=== PATIENT | female | born 2000 | race Caucasian/White ===

== ENCOUNTER 2019-10-15 01:33 | Day surgery (SDC) | payer BC, SELFPAY ==
[2019-10-06 14:17] VITALS: BMI 16.5
--- NOTE | 2019-10-15 07:58 | WPDANESEPPF ---
Anes - Initial Pre Proc Eval Procedure: Operation Date: 10/15/19 09:00 Proposed Procedures p Esophagogastroduodenoscopy - Blake Queen MD Date/Time: 10/15/19 07:58 Surgeon: Blake Queen MD Pre Op Diagnosis: weight loss, abdominal pain Patient Data Age: 19 Gender: F Height: 5 ft 5 in Weight: 45 kg Allergies Allergy/AdvReac Type Severity Reaction Status Date / Time latex Allergy Severe Hives Verified 10/15/19 07:51 adhesive Allergy Intermediate Rash Verified 10/15/19 07:51 Home Medications Medication Instructions Recorded Confirmed Type norgestimate-ethinyl estradiol 1 tablet PO DAILY 08/11/19 08/11/19 History [Estarylla] omeprazole 20 mg PO DAILY 10/06/19 10/06/19 History Patient hx anesthesia problems: post op nausea/vomiting Family hx anesthesia problems: post op nausea/vomiting PMFSH Past Medical History Medical History Dyspepsia Kidney stone Nausea RUQ pain Weight loss Surgical History Surgical History History of orthopedic surgery Social History Social History Smoking status: Never smoker Gender identity (if verbalized by the patient): Female Anes - Eval Final PreProcedure Day of Procedure 10/15/19 07:58 Patient weight: normal Heart: regular rate and rhythm Lungs: clear to auscultation Airway: Mallampati scale class 1 Neurological: alert and oriented Last oral intake: >/= 8 hours ASA classification: II Emergent: no Anesthetic plan: proceed Anesthesia type and monitoring: general GIVS and standard monitoring Informed Consent: The patient's anesthetic plan and its attendant risks and benefits were discussed with the patient/family/POA. Questions were solicited and answers provided to the satisfaction of the patient/family/POA.
[2019-10-15 08:04] VITALS: BP 127/73; PULSE 84; RESP 16; TEMP 37.1; O2SAT 100
[2019-10-15] MEDS: LACTATED RINGERS 1,000 ML 150 ML IV CONT (08:15)
--- NOTE | 2019-10-15 08:42 | WPDHPUPDATE1 ---
History and Physical Update Update Date/Time: 10/15/19 08:42 History and Physical has been reviewed, including an updated exam of the patient. There are NO changes in the patient's condition. Risks, benefits, and alternatives have been discussed and questions answered. Patient agrees to proceed with procedure.
[2019-10-15 08:55] VITALS: BP 106/63; PULSE 74; RESP 20; O2SAT 100
[2019-10-15 09:05] VITALS: BP 114/77; PULSE 76; RESP 17; O2SAT 100
[2019-10-15 09:15] VITALS: BP 111/77; PULSE 72; RESP 20; O2SAT 99
--- NOTE | 2019-10-15 15:00 | PM.HPGS ---
History of Present Illness History of Present Illness Consent: Risks, benefits, and alternatives have been discussed and questions answered. Patient agrees to proceed with procedure. Chief complaint: weight loss, abdominal pain Narrative: Lita Singh is a 19 year old female with abdominal pain Review of Systems Constitutional: Constitutional: Denies headache(s) and Denies weakness Eyes: Eyes: Denies blurry vision ENT: Reports Normal hearing present, Denies headache(s) and Denies neck pain Cardiovascular: Cardiovascular: Denies chest pain and Denies dyspnea Respiratory: Respiratory: Denies dyspnea Gastrointestinal: Gastrointestinal: Reports no additional gastrointestinal complaints Genitourinary: Genitourinary: Denies dysuria Musculoskeletal: Musculoskeletal: Denies neck pain Integumentary/Breasts: Skin/Breast: Denies dry skin Neurologic: Reports Normal hearing present, Denies headache(s) and Denies weakness Psychiatric: Psychiatric: Denies anxiety Endocrine: Endocrine: Denies change in body appearance Hematologic/Lymphatic: Hematologic/Lymphatic: Denies easy bleeding Allergic/Immunologic: Allergic/Immunologic: Denies urticaria PMFSH Past Medical History Medical History Dyspepsia Kidney stone Nausea RUQ pain Weight loss Surgical History Surgical History History of orthopedic surgery Social History Social History Smoking status: Never smoker Gender identity (if verbalized by the patient): Female Meds Home Medications and Allergies Home Medications Medication Instructions Recorded Confirmed Type norgestimate-ethinyl estradiol 1 tablet PO DAILY 08/11/19 10/25/19 History [Estarylla] Allergies Allergy/AdvReac Type Severity Reaction Status Date / Time latex Allergy Severe Hives Verified 10/25/19 19:22 adhesive Allergy Intermediate Rash Verified 10/25/19 19:22 Exam Const: General: comfortable and no acute distress HENMT: General nose exam: Normal nares present Eyes: General: appearance normal, both eyes and all related structures Neck: Neck: no JVD Resp: Auscultation: clear to auscultation bilaterally Cardio: Rate: regular rate Rhythm: regular rhythm GI: Inspection: non-distended GI Palp: Yes Soft to palpation Skin: General skin exam: normal color Neuro: General: gait normal Speech: normal speech Extrem: General: normal to inspection Psych: Mental Status: mental status grossly normal Assessment and Plan Assessment and plan (1) Nausea: Code(s): R11.0 - Nausea Status: Acute Assessment and Plan: will proceed with egd (2) RUQ pain: Code(s): R10.11 - Right upper quadrant pain Status: Acute
== END 2019-10-15 09:28 | disposition home or self-care (01) ==
PROVIDERS: PCP Physician Assistant; Visit Provider Internal Medicine Gastroenterology
PROC: 0DJ08ZZ Inspection of Upper Intestinal Tract, Via Natural or Artificial Opening Endoscopic (ICD-10-PCS; CPT 43235; principal; 2019-10-15 09:00)
DX: K31.84 Gastroparesis (principal); K29.50 Unspecified chronic gastritis without bleeding
CPT/HCPCS: 43239; 88305; J2704; J7120

== ENCOUNTER 2019-10-25 18:53 | Emergency (ER) | payer BC, SELFPAY ==
[2019-10-25 19:00] VITALS: BP 113/68; PULSE 86; RESP 18; TEMP 37.1; O2SAT 100
--- NOTE | 2019-10-25 19:13 | ED.URI ---
HPI - URI/Sore Throat General Chief Complaint: Upper Respiratory Infection Stated Complaint: flu test Time Seen by Provider: 10/25/19 19:13 Source: patient and RN notes reviewed History of Present Illness HPI Narrative: Patient is a 19-year-old female presents the urgent care with complaints of sinus congestion, postnasal drainage, intermittent sore throat. Patient states that she has had the symptoms since Sunday but developed a low-grade fever 2 days ago. Patient has been using Tylenol as needed [id number]. No other acute complaints. No acute distress noted. Patient had a plan of care. Related Data Home Medications Medication Instructions Recorded Confirmed norgestimate-ethinyl estradiol 1 tablet PO DAILY 08/11/19 08/11/19 [Estarylla] Allergies Allergy/AdvReac Type Severity Reaction Status Date / Time latex Allergy Severe Hives Verified 10/25/19 19:22 adhesive Allergy Intermediate Rash Verified 10/25/19 19:22 Review of Systems Review of Systems: Narrative: CONSTITUTIONAL: Reports a fever EYES: Denies visual changes, redness, or discharge. ENT: Reports of sinus congestion and postnasal drainage and intermittent sore throat CARDIOVASCULAR: Denies chest pain, palpitations, or edema. RESPIRATORY: Denies cough or dyspnea. GASTROINTESTINAL: Denies abdominal pain, nausea, vomiting, or diarrhea. GENITOURINARY: Denies dysuria or hematuria. SKIN: Denies rash or itching. MUSCULOSKELETAL: Denies back pain, joint pain, or myalgia. NEUROLOGIC: Denies headache, numbness, or weakness. All other systems reviewed are negative, except as documented in HPI. PMFSH Social History Social History Smoking status: Never smoker Gender identity (if verbalized by the patient): Female Comments At the time of my signature, I reviewed and agree with the nursing past medical, surgical, social, and family history. There is no relevant family history pertinent to the patient complaint. Exam Narrative: Exam Narrative: GENERAL: This is a well-nourished, well-developed patient, in no apparent distress. HEAD: normocephalic, atraumatic. EYES: PERRL. Sclera clear/white. Vision is grossly intact. EARS: External ears normal, auditory canals clear and without drainage, TMs normal without perforation. Hearing grossly intact. NOSE: External nose normal with no obvious nasal discharge, mild bilateral erythemic nares with clear rhinorrhea. THROAT: Mucous membranes moist, mild erythema noted posterior oropharynx with moderate postnasal drainage. NECK: Neck supple, non-tender without lymphadenopathy, masses or thyromegaly. CARDIOVASCULAR: Regular rate and rhythm without murmurs, gallops, or rubs. RESPIRATORY: Clear to auscultation. Breath sounds equal bilaterally. No wheezes, rales, or rhonchi. SKIN: warm, intact with no suspicious lesions or rash, good texture and turgor. NEURO: awake, alert, and oriented to person, place and time. There were no obvious focal neurologic abnormalities. EXTREMITIES: No clubbing, cyanosis, or edema. Course Vital Signs Vital signs: Vital Signs Temperature 98.7 F 10/25/19 19:00 Pulse Rate 86 10/25/19 19:00 Respiratory Rate 18 10/25/19 19:00 Blood Pressure 113/68 10/25/19 19:00 Pulse Oximetry 100 10/25/19 19:00 Temperature 98.7 F 10/25/19 19:00 Pulse Rate 86 10/25/19 19:00 Respiratory Rate 18 10/25/19 19:00 Blood Pressure 113/68 10/25/19 19:00 Pulse Oximetry 100 10/25/19 19:00 Reviewed MDM - URI/Sore Throat MDM Narrative Medical decision making narrative: Reviewed lab results with the patient. She is aware that flu swab was negative. Advised the patient to use [id number]-lfzznbe medication for symptom relief such as Claritin and Flonase. Use Tylenol/ibuprofen as needed for fever pain. Increase fluids and rest. Use humidifier at night. Follow-up with PCP within 2 to 5 days or for worsening symptoms or failure to impro
== END 2019-10-25 19:35 | disposition home or self-care (01) ==
PROVIDERS: Emergency Provider Nurse Practitioner Family; PCP Physician Assistant
DX: J06.9 Acute upper respiratory infection, unspecified (principal)
CPT/HCPCS: 87804; 99212; G0463

== ENCOUNTER 2019-12-06 10:21 | Emergency (ER) | payer BC, SELFPAY ==
--- NOTE | 2019-12-06 10:26 | ED.GENADULT ---
HPI - General Adult General Chief complaint: Urogenital-Female Stated complaint: UTI Time Seen by Provider: 12/06/19 10:41 Source: patient Mode of arrival: ambulatory Limitations: no limitations History of Present Illness HPI narrative: 19-year-old female patient presents to the [facility] with complaints of urinary symptoms that started this morning. Patient states she has had urgency, frequency and burning with urination. Patient denies any , breast-feeding or being sexually active at this time. Patient denies taking thing for her symptoms so far. Related Data Home Medications Medication Instructions Recorded Confirmed norethindrone-e.estradiol-iron 1 tablet PO DAILY 12/06/19 12/06/19 [10/06 (28)] Allergies Allergy/AdvReac Type Severity Reaction Status Date / Time latex Allergy Severe Hives Verified 10/25/19 19:22 adhesive Allergy Intermediate Rash Verified 10/25/19 19:22 Review of Systems Review of Systems: Narrative: CONSTITUTIONAL: Denies fever, chills, or sweats. EYES: Denies visual changes, redness, or discharge. ENT: Denies rhinorrhea, congestion, sore throat, or otalgia. CARDIOVASCULAR: Denies chest pain, palpitations, or edema. RESPIRATORY: Denies cough or dyspnea. GASTROINTESTINAL: Denies abdominal pain, nausea, vomiting, or diarrhea. GENITOURINARY: Denies dysuria or hematuria. Positive pain with urination, urgency and frequency that started this a.m. SKIN: Denies rash or itching. MUSCULOSKELETAL: Denies back pain, joint pain, or myalgia. NEUROLOGIC: Denies headache, numbness, or weakness. PSYCHIATRIC: Denies anxiety or depression. [facility] Past Medical History Medical History Dyspepsia Kidney stone Nausea RUQ pain Weight loss Surgical History Surgical History History of orthopedic surgery Social History Social History Smoking status: Never smoker Gender identity (if verbalized by the patient): Female Comments At the time of my signature I agree with nursing past medical history, surgical, social, and family history. There is no relevant family history pertinent to the presenting complaint. Exam Narrative: Exam Narrative: GENERAL: Well-appearing, well-nourished, and in no acute distress. HEAD: Normocephalic, atraumatic. EYES: PERRLA and EOMI. ENT: Nares clear, no rhinorrhea or epistaxis. Mucous membranes moist. NECK: Supple. No lymphadenopathy CHEST: Clear to auscultation. No respiratory distress. HEART: Regular rate and rhythm. No murmur heard. Normal peripheral pulses. ABDOMEN: Soft, nontender, nondistended, normal active bowel sounds. Slight CVA tenderness to the right side on percussion. EXTREMITIES: Normal range of motion. No edema. SKIN: Warm, dry, no rash. NEURO: No focal deficits. Alert and oriented x3. Course Vital Signs Vital signs: Vital Signs Temperature 36.4 C L 12/06/19 10:27 Pulse Rate 80 12/06/19 10:27 Respiratory Rate 16 12/06/19 10:27 Blood Pressure 124/87 12/06/19 10:27 Pulse Oximetry 100 12/06/19 10:27 Temperature 36.4 C L 12/06/19 10:27 Pulse Rate 80 12/06/19 10:27 Respiratory Rate 16 12/06/19 10:27 Blood Pressure 124/87 12/06/19 10:27 Pulse Oximetry 100 12/06/19 10:27 Vital signs reviewed. Medical Decision Making Differential Diagnosis Differential Diagnosis: Differential diagnosis: Uncomplicated lower UTI, uncomplicated UTI, pyelonephritis Notify patient that her urine dip does suggest that she most likely does have a urinary tract infection therefore we will discharge her home with antibiotics for the UTI and she can take Tylenol, ibuprofen and increase her water intake to help with her symptoms. Patient notified that if the urine culture comes back requiring a different type of antibiotic we will call her own place her on a different ant
[2019-12-06 10:27] VITALS: BP 124/87; PULSE 80; RESP 16; TEMP 36.4; O2SAT 100
== END 2019-12-06 10:50 | disposition home or self-care (01) ==
PROVIDERS: Emergency Provider Nurse Practitioner Family; PCP Physician Assistant
DX: N30.01 Acute cystitis with hematuria (principal)
CPT/HCPCS: 81003; 87077; 87086; 87088; 87186; 99213; G0463

== ENCOUNTER 2020-01-28 08:28 | Outpatient (CLI) | payer BC, SELFPAY ==
--- NOTE | ~2020-01-28 | NM_ITS ---
EXAM: NM gastric emptying study DATE: 01/28/2020 13:23 INDICATION: Nausea. TECHNIQUE: A gastric emptying study was performed using the methodology of [place] WILLIS, et al. J Nucl Med 2007; 48:568-572. The patient was given a meal consisting of 2 scrambled eggs labeled with 0.891 mCi Tc-99m sulfur colloid, 2 slices of toast, two packages of jam, and approximately 120 mL of water . Simultaneous anterior and posterior 1-min images of the abdomen were obtained with the patient supi ne at multiple time points over a total period of 4 hours. The geometric mean of anterior and posteri or views was determined, and the percentage retention was calculated for each time point. COMPARISON: None. FINDINGS: Gastric retention of the radiotracer-labeled meal was 47%, 19%, and 12% at the 1-hour, 2-h our, and 4-hour time points, respectively. With this technique, apparent rapid gastric emptying is quinn ggested by <30% gastric retention at 1 hour. Delayed gastric emptying is defined by gastric retention of >90% at 1 hour, >60% retention at 2 hours, or >10% retention at 4 hours. IMPRESSION: 1. Delayed gastric emptying. Reviewed, dictated and finalized at location A.
== END 2020-01-28 08:29 | disposition home or self-care (01) ==
PROVIDERS: PCP Physician Assistant; Visit Provider Internal Medicine Gastroenterology
DX: R11.0 Nausea (principal); R14.0 Abdominal distension (gaseous); K30 Functional dyspepsia
CPT/HCPCS: 78264; A9541

== ENCOUNTER 2020-04-02 10:05 | Emergency (ER) | payer BC, SELFPAY ==
[2020-04-02 10:10] VITALS: BP 112/70; PULSE 100; RESP 16; TEMP 37.4; O2SAT 100
--- NOTE | 2020-04-02 10:21 | ED.EYEPROB ---
HPI - Eye Problem General Chief complaint: Eye Problems Stated complaint: right eye swollen/red Time Seen by Provider: 04/02/20 10:21 Source: patient Mode of arrival: ambulatory Limitations: no limitations History of Present Illness HPI Narrative: Lita Singh is a 19 yo female with PMH of GERD and seasonal allergies who comes to express care with right eye swelling. She states that 2 days ago her eye was swollen shut in the morning and crusted, responded well to warm washcloth, has become progressively more teary and injected Related Data Home Medications Medication Instructions Recorded Confirmed norethindrone-e.estradiol-iron 1 tablet PO DAILY 12/06/19 04/02/20 [10/06 (28)] Allergies Allergy/AdvReac Type Severity Reaction Status Date / Time latex Allergy Severe Hives Verified 04/02/20 10:28 adhesive Allergy Intermediate Rash Verified 04/02/20 10:28 Review of Systems Review of Systems: Narrative: CONSTITUTIONAL: Denies fever, chills, sweats. EYES: Denies visual changes, redness, discharge. ENT: Denies rhinorrhea, congestion, sore throat, otalgia. Right eye swollen and injected CARDIOVASCULAR: Denies chest pain, palpitations, edema. RESPIRATORY: Denies dyspnea, wheezing, cough GASTROINTESTINAL: Denies abdominal pain, nausea, vomiting, diarrhea. GENITOURINARY: Denies dysuria, hematuria, abnormal discharge SKIN: Denies rash or itching. NEUROLOGIC: Denies numbness, or focal weakness. PSYCHIATRIC: Denies anxiety or depression. PMFSH Past Medical History Medical History Bloating Constipation Dyspepsia Gastroesophageal reflux disease Kidney stone Nausea RUQ pain Weight loss Surgical History Surgical History History of orthopedic surgery Family History Family History Other No active medical problems Social History Social History Smoking status: Never smoker Gender identity (if verbalized by the patient): Female Comments At time of signature, I agree with nursing past medical, surgical, social and family history. There is no relevant family history pertinent to the presenting complaint. Exam Narrative: Exam Narrative: GENERAL: This is a well-nourished, well-developed patient, in mild distress. HEAD: normocephalic, atraumatic. EYES Sclera clear/white on L, right eye swollen and injected, small amount of discharge intercanthus. Vision is grossly intact. EARS: External ears normal, . Hearing grossly intact. NOSE: External nose normal without nasal discharge, nares without redness, no rhinorrhea. THROAT: Mucous membranes moist, NECK: Neck supple, CARDIOVASCULAR: Regular rate and rhythm without murmurs, gallops, or rubs. RESPIRATORY: Clear to auscultation. Breath sounds equal bilaterally. No wheezes, rales, or rhonchi. GASTROINTESTINAL: Abdomen soft, SKIN: warm, intact with no suspicious lesions or rash, good texture and turgor. NEURO: awake, alert, and oriented to person, place and time. There were no obvious focal neurologic abnormalities. Steady gait EXTREMITIES: Normal range of motion. BACK: Nontender without deformity Course Course Emergency Course: Visual acuity test normal Started on Polytrim eyedrops-warm compresses to eye 3 times a day Vital Signs Vital signs: Vital Signs Temperature 99.3 F 04/02/20 10:10 Pulse Rate 100 04/02/20 10:10 Respiratory Rate 16 04/02/20 10:10 Blood Pressure 112/70 04/02/20 10:10 Pulse Oximetry 100 04/02/20 10:10 Temperature 99.3 F 04/02/20 10:10 Pulse Rate 100 04/02/20 10:10 Respiratory Rate 16 04/02/20 10:10 Blood Pressure 112/70 04/02/20 10:10 Pulse Oximetry 100 04/02/20 10:10 MDM - Eye Problem Differential Diagnosis Differential diagnosis: Likely corneal abrasion, conjunctiv
== END 2020-04-02 10:42 | disposition home or self-care (01) ==
PROVIDERS: Emergency Provider Nurse Practitioner; PCP Physician Assistant
DX: H10.31 Unspecified acute conjunctivitis, right eye (principal); K21.9 Gastro-esophageal reflux disease without esophagitis
CPT/HCPCS: 99213; G0463

== ENCOUNTER 2020-10-24 11:16 | Emergency (ER) | payer BC, SELFPAY ==
[2020-10-24 11:28] VITALS: BP 120/77; PULSE 78; RESP 20; TEMP 36.2; O2SAT 100
--- NOTE | 2020-10-24 12:04 | ED.GENADULT ---
HPI - General Adult General Chief complaint: Urogenital-Female Stated complaint: POS UTI Source: patient Mode of arrival: ambulatory Limitations: no limitations History of Present Illness HPI narrative: Patient presents for evaluation of urinary symptoms. Approximately 1 week ago she developed intermittent right flank pain. Symptoms were on and off for approximately 24 hours. Yesterday she developed some dysuria and woke from sleep this morning with worsening dysuria, urinary hesitancy and frequency. She also has some cramping in the suprapubic region with urination. She has no fever, chills, nausea, vomiting, vaginal bleeding or discharge. LMP approximately 1 month ago at the time of an IUD insertion. She had problems with recurrent urinary tract infection several years ago. She eliminated caffeine from her diet and has not had a urinary tract infection since that time. No additional complaints or concerns. Related Data Home Medications Medication Instructions Recorded Confirmed lxuewewjafst-gjj-hmdd-FA-vit K tablet PO 10/24/20 [Adults Multivitamin] Allergies Allergy/AdvReac Type Severity Reaction Status Date / Time latex Allergy Severe Hives Verified 04/02/20 10:28 adhesive Allergy Intermediate Rash Verified 04/02/20 10:28 Review of Systems Review of Systems: Narrative: CONSTITUTIONAL: Denies fever, chills, or sweats. EYES: Denies visual changes, redness, or discharge. ENT: Denies rhinorrhea, congestion, sore throat, or otalgia. CARDIOVASCULAR: Denies chest pain, palpitations, or edema. RESPIRATORY: Denies cough or dyspnea. GASTROINTESTINAL: Reports suprapubic cramping with urination. Denies nausea, vomiting, or diarrhea. GENITOURINARY: Reports urinary frequency, hesitancy, and dysuria. SKIN: Denies rash or itching. MUSCULOSKELETAL: Reports intermittent right flank pain. Denies joint pain, or myalgia. NEUROLOGIC: Denies headache, numbness, dizziness, or weakness. PSYCHIATRIC: Denies anxiety or depression. [facility] Past Medical History Medical History (Updated 10/24/20 @ 12:09 by Sharan Olson, MINNA, MARY) Bloating Constipation Dyspepsia Gastroesophageal reflux disease Kidney stone Nausea RUQ pain Weight loss Surgical History Surgical History History of orthopedic surgery Family History Family History (Updated 10/24/20 @ 12:07 by Sharan Olson, MINNA, ) Mother Kidney stones Other No active medical problems Social History Social History Smoking status: Never smoker Gender identity (if verbalized by the patient): Female Exam Narrative: Exam Narrative: GENERAL: Well-appearing, well-nourished, and in no acute distress. HEAD: Normocephalic, atraumatic. EYES: PERRLA and EOMI. ENT: Nares clear, no rhinorrhea or epistaxis. Mucous membranes moist. Oropharynx without tonsillar hypertrophy exudate or other lesions. Bilateral TMs pearly churchill nonbulging NECK: Supple. No adenopathy or masses. No carotid bruits or JVD CHEST: Clear to auscultation. No respiratory distress. No wheezes rales or rhonchi HEART: Regular rate and rhythm. No murmur heard. Normal peripheral pulses. ABDOMEN: Soft, nondistended, normal active bowel sounds. No CVA tenderness. Mild suprapubic tenderness. EXTREMITIES: Normal range of motion. No edema. SKIN: Warm, dry, no rash. NEURO: No focal deficits. Alert and oriented x3. PSYCH: Normal mood and affect. Course Course Emergency Course: This is a 20-year-old female with urinary symptoms over the last 24 hours. She has also had some right flank pain intermittently for approximately 1 week. The pain has improved in terms of frequency. She had a urine dipstick here that had positive nitrites and 1+ leukocytes. Will treat empirically for urinary tract infection with Macrobid. Send urine for culture. Follow-up this coming week and return for any w
== END 2020-10-24 12:16 | disposition home or self-care (01) ==
PROVIDERS: Emergency Provider Nurse Practitioner
DX: N30.00 Acute cystitis without hematuria (principal); K21.9 Gastro-esophageal reflux disease without esophagitis
CPT/HCPCS: 81003; 87077; 87086; 87088; 87186; 99213; G0463

== ENCOUNTER 2021-05-25 14:25 | Emergency (ER) | payer BC, SELFPAY ==
[2021-05-25 14:35] VITALS: BP 138/77; PULSE 99; RESP 16; TEMP 38.1; O2SAT 100
--- NOTE | 2021-05-25 14:54 | ED.URI ---
HPI - URI/Sore Throat General Chief Complaint: Upper Respiratory Infection Stated Complaint: sore throat Source: patient Mode of arrival: ambulatory Limitations: no limitations History of Present Illness HPI Narrative: Patient is a 20-year-old female who presents complaining of sore throat, fever and headache x4 to 5 days. Patient reports being tested for Covid multiple times at [facility] as she is a nursing agency manager. Patient reports rapid Covid testing has been negative. She reports a history of strep throat in the past. She reports taking [id number] medications with limited symptom relief. Related Data Home Medications Medication Instructions Recorded Confirmed metoclopramide HCl 5 mg PO DAILY 05/25/21 05/25/21 Allergies Allergy/AdvReac Type Severity Reaction Status Date / Time latex Allergy Anaphylaxis Verified 05/25/21 14:44 Review of Systems Review of Systems: CONSTITUTIONAL: Denies fever, chills, or sweats. EYES: Denies visual changes, redness, or discharge. ENT: Reports sore throat CARDIOVASCULAR: Denies chest pain, palpitations, or edema. RESPIRATORY: Denies cough or dyspnea. GASTROINTESTINAL: Denies abdominal pain, nausea, vomiting, or diarrhea. GENITOURINARY: Denies dysuria or hematuria. SKIN: Denies rash or itching. MUSCULOSKELETAL: Denies back pain, joint pain, or myalgia. NEUROLOGIC: Denies headache, numbness, dizziness, or weakness. PSYCHIATRIC: Denies anxiety or depression. PMFSH Past Medical History Medical History (Updated 05/25/21 @ 15:00 by MINNA Stephenson) Strep throat Surgical History Surgical History (Updated 05/25/21 @ 14:56 by MINNA Stephenson) No significant past surgical history Family History Family History (Updated 05/25/21 @ 14:56 by MINNA Stephenson) Other No significant family history Social History Social History (Updated 05/25/21 @ 14:57 by MINNA Stephenson) Smoking status: Never smoker Alcohol intake: current Alcohol use details: occasional Substance use: never Living arrangements: with roommate(s) Occupation/Education: student Gender identity (if verbalized by the patient): Female Exam Narrative: GENERAL: Well-appearing, well-nourished, and in no acute distress. HEAD: Normocephalic, atraumatic. EYES: EOMI. No redness or drainage. Conjunctiva are normal. ENT: Mucous membranes pink and moist. Nares clear. No rhinorrhea. TMs normal bilaterally. Throat with moderate erythema and edema, no exudate. Uvula midline. NECK: AROM. Supple. Positive cervical lymphadenopathy. CHEST: No respiratory distress. HEART: Regular rate and rhythm. EXTREMITIES: Normal range of motion. No edema. SKIN: Warm, dry, no rash. NEURO: No focal deficits. Alert and oriented x3. Gait steady. PSYCH: Normal affect. No signs of depression or anxiety. Course Vital Signs Vital signs: Vital Signs Temperature 38.1 C H 05/25/21 14:35 Pulse Rate 99 05/25/21 14:35 Respiratory Rate 16 05/25/21 14:35 Blood Pressure 138/77 05/25/21 14:35 Pulse Oximetry 100 05/25/21 14:35 Temperature 38.1 C H 05/25/21 14:35 Pulse Rate 99 05/25/21 14:35 Respiratory Rate 16 05/25/21 14:35 Blood Pressure 138/77 05/25/21 14:35 Pulse Oximetry 100 05/25/21 14:35 Reviewed MDM - URI/Sore Throat Differential Diagnosis Differential diagnosis: Likely upper respiratory infection, sinusitis, bronchitis, influenza and pharyngitis Lab Data Attestation: I reviewed the patient's lab results. Labs: Strep Screen Presumptive Negative *(Reference Range: Negative)* Critical Care Time Critical Care Time Critical Care Time: No Discharge Plan Discharge Clinical Impression: Upper respiratory infection, Acute tonsillitis Patient Disposition: Home, Self-Care Condition: Stable Instructions: Antibiotic Form, Tonsillitis (ED) Additional Instructions: Take antibiotics as
[2021-05-26 20:43] LABS: SARS-CoV-2 RNA PCR Negative
== END 2021-05-25 15:11 | disposition home or self-care (01) ==
PROVIDERS: Emergency Provider Nurse Practitioner; PCP Physician Assistant
DX: J06.9 Acute upper respiratory infection, unspecified (principal); J03.90 Acute tonsillitis, unspecified; Z20.822 Contact with and (suspected) exposure to COVID-19; K21.9 Gastro-esophageal reflux disease without esophagitis
CPT/HCPCS: 87081; 87880; 99213; C9803; G0463; U0003; U0005

== ENCOUNTER 2021-07-25 16:18 | Emergency (ER) | payer BC, SELFPAY ==
[2021-07-25 16:31] VITALS: BP 113/79; PULSE 105; RESP 18; TEMP 37.5; O2SAT 100
--- NOTE | 2021-07-25 16:55 | ED.GENADULT ---
HPI - General Adult General Chief complaint: Upper Respiratory Infection Stated complaint: Sinus Pain Source: patient Mode of arrival: ambulatory Limitations: no limitations History of Present Illness HPI narrative: 20 y/o female. PMHx: Bronchitis. Presents to [facility] clinic today with acute complaints of nasal congestion, 'barking' cough, and intermittent dyspnea for the past 3 days. Pt notes subtherapeutic relief to home OTC remedies. No fever, chills. No chest pain, palpitations, edema. No GI upset, N/V. She denies known ill contacts. Non-smoker. No additional acute c/o illness upon PE. Related Data Allergies Allergy/AdvReac Type Severity Reaction Status Date / Time latex Allergy Severe Hives Verified 07/25/21 16:35 adhesive Allergy Intermediate Rash Verified 07/25/21 16:35 Review of Systems Review of Systems: CONSTITUTIONAL: Denies fever, chills, sweats. EYES: Denies visual changes, redness, discharge. ENT: Positive rhinorrhea, congestion. No sore throat, otalgia. CARDIOVASCULAR: Denies chest pain, palpitations, edema. RESPIRATORY: Positive dyspnea, cough. GASTROINTESTINAL: Denies abdominal pain, nausea, vomiting, diarrhea. GENITOURINARY: Denies dysuria, hematuria, abnormal discharge SKIN: Denies rash or itching. MUSCULOSKELETAL: Denies acute back pain, joint pain, or myalgia. NEUROLOGIC: Denies numbness, or focal weakness. PSYCHIATRIC: Denies anxiety or depression. All systems reviewed & are unremarkable except as noted in HPI and below PMFSH Past Medical History Medical History (Updated 07/25/21 @ 17:01 by ERICKSON King) Bloating Constipation Dyspepsia Gastroesophageal reflux disease Kidney stone Nausea RUQ pain Weight loss Surgical History Surgical History History of orthopedic surgery Family History Family History Mother Kidney stones Other No active medical problems Social History Social History Smoking status: Never smoker Gender identity (if verbalized by the patient): Female Exam Narrative: GENERAL: This is a well-nourished, well-developed adult, in no apparent distress. HEAD: normocephalic, atraumatic. EYES: PERRL. Sclera clear/white. EARS: External ears normal, auditory canals clear and without drainage, TMs normal. NOSE: External nose normal. Positive Rhinorrhea, no obstruction, nares patent. THROAT: Mucous membranes moist, posterior pharynx erythematous. No exudates. NECK: Neck supple, non-tender without lymphadenopathy, masses or thyromegaly. CARDIOVASCULAR: Regular rate and rhythm without murmurs, gallops, or rubs. RESPIRATORY: Upper airway bronchial rhonchi, cleared with cough. Breath sounds equal bilaterally. No wheezes, rales, or rhonchi. GASTROINTESTINAL: Abdomen soft, non-tender, nondistended. Bowel sounds are active. No guarding. SKIN: warm, intact with no suspicious lesions or rash, good texture and turgor. NEURO: Alert, active, and age appropriate. No focal neurologic deficits. EXTREMITIES: Negative. Course Vital Signs Vital signs: Vital Signs Temperature 37.5 C 07/25/21 16:31 Pulse Rate 105 H 07/25/21 16:31 Respiratory Rate 18 07/25/21 16:31 Blood Pressure 113/79 07/25/21 16:31 Pulse Oximetry 100 07/25/21 16:31 Temperature 37.5 C 07/25/21 16:31 Pulse Rate 105 H 07/25/21 16:31 Respiratory Rate 18 07/25/21 16:31 Blood Pressure 113/79 07/25/21 16:31 Pulse Oximetry 100 07/25/21 16:31 Medical Decision Making [facility] Narrative Medical decision making narrative: -No hypoxemia, no distress. -Start Zpack & Medrol dose pack as directed. Pro-Air HFA PRN. -May resume all additional OTC remedies as needed for symptomatic relief. -PCP F/U 1 WK. -ER W/Emergent health status changes. Pt agrees. Differential Diagnosis Differential
== END 2021-07-25 17:06 | disposition home or self-care (01) ==
PROVIDERS: Emergency Provider Nurse Practitioner Adult Health; PCP Physician Assistant
DX: J40 Bronchitis, not specified as acute or chronic (principal); J06.9 Acute upper respiratory infection, unspecified; K21.9 Gastro-esophageal reflux disease without esophagitis
CPT/HCPCS: 99213; G0463

== ENCOUNTER 2021-08-12 16:49 | Emergency (ER) | payer BC, SELFPAY ==
--- NOTE | 2021-08-12 16:55 | ED.URI ---
HPI - URI/Sore Throat General Chief Complaint: Upper Respiratory Infection Stated Complaint: Sore Throat Time Seen by Provider: 08/12/21 17:03 Source: patient and RN notes reviewed Mode of arrival: ambulatory Limitations: no limitations History of Present Illness HPI Narrative: 21-year-old female presents with concern for sore throat, swollen tonsils for 4 to 5 days, fever. Reports a history of tonsillitis. Reports her last infection was 3 months ago. Denies runny nose, nasal congestion, nausea, vomiting, diarrhea, cough. MD elicited complaint: sore throat Related Data Allergies Allergy/AdvReac Type Severity Reaction Status Date / Time latex Allergy Severe Hives Verified 08/12/21 17:02 adhesive Allergy Intermediate Rash Verified 08/12/21 17:02 Review of Systems Review of Systems: CONSTITUTIONAL: Denies malaise, chills, sweats, or fever. EYES: Denies visual changes, redness, or discharge. ENT: Denies rhinorrhea, congestion, sinus pain, otalgia. Reports sore throat. CARDIOVASCULAR: Denies chest pain, palpitations, or edema. RESPIRATORY: Denies cough. Denies dyspnea. GASTROINTESTINAL: Denies abdominal pain, nausea, vomiting, diarrhea SKIN: Denies rash or itching. MUSCULOSKELETAL: Denies myalgia. NEUROLOGIC: Denies headache. All systems reviewed & are unremarkable except as noted in HPI and below PMFSH Past Medical History Medical History (Updated 08/12/21 @ 17:12 by Barbara Lewis NP) Bloating Constipation Dyspepsia Gastroesophageal reflux disease Kidney stone Nausea RUQ pain Weight loss Surgical History Surgical History History of orthopedic surgery Family History Family History Mother Kidney stones Other No active medical problems Social History Social History Smoking status: Never smoker Gender identity (if verbalized by the patient): Female Comments At time of signature, agree with nursing past medical, surgical, social and family history. There is no relevant family history pertinent to the presenting complaint Exam Narrative: GENERAL: Well-appearing, well-nourished, and in no acute distress. HEAD: Normocephalic EYES: PERRLA, conjunctivae clear ENT: Nares clear. Mucous membranes moist. TM pearly churchill with sharp light reflex bilaterally; no tragal tenderness. Oropharynx erythematous without lesions. Tonsils enlarged 3+ and without exudate, no drooling, no hoarseness, no trismus, uvula midline. NECK: Supple. No lymphadenopathy CHEST: Clear to auscultation, breath sounds equal. No wheezing, rhonchi, rales, or stridor. No respiratory distress, speaks in full sentences. HEART: Regular rate and rhythm. No murmur heard. SKIN: Warm, dry, no rash. NEURO: Alert and oriented x3. PSYCH: Normal mood and affect Course Course Emergency Course: Patient is aware of diagnosis, understands and agrees to treatment plan. Anticipatory guidance given. Patient agrees to follow-up as directed and is aware of reasons to seek care at the emergency department. Portions of this record may have been created with voice recognition software Vital Signs Vital signs: Reviewed. MDM - URI/Sore Throat MDM Narrative Medical decision making narrative: Differential diagnosis considered: Mar virus, strep pharyngitis, allergic rhinitis, upper respiratory tract infection, sinusitis, rhinosinusitis, nasopharyngitis. viral pharyngitis, otitis media, otitis externa, pneumonia, bronchitis, viral cough syndrome, viral syndrome, and influenza. Exam findings show no acute concerns or changes; patient is non-toxic appearing and is in no distress. Patient is appropriate for outpatient treatment and follow-up. Lab Data Attestation: I reviewed the patient's lab results. Critical Care Time Critical Care Time Critical Care Time: No Discharge Plan Discharge Clinical Im
[2021-08-12 16:59] VITALS: BP 118/75; PULSE 81; RESP 18; TEMP 37.6; O2SAT 100
== END 2021-08-12 17:17 | disposition home or self-care (01) ==
PROVIDERS: Emergency Provider Nurse Practitioner; PCP Physician Assistant
DX: J03.90 Acute tonsillitis, unspecified (principal); K21.9 Gastro-esophageal reflux disease without esophagitis
CPT/HCPCS: 87081; 87880; 99213; G0463

== ENCOUNTER 2021-11-17 12:15 | Emergency (ER) | payer BC, SELFPAY ==
[2021-11-17 12:19] VITALS: BP 121/77; PULSE 104; RESP 16; TEMP 36.8; O2SAT 100
--- NOTE | 2021-11-17 12:24 | ED.GENADULT ---
HPI - General Adult General Chief complaint: Skin/Abscess/Foreign Body Stated complaint: ALLERGIC REACTION Source: patient Mode of arrival: ambulatory Limitations: no limitations History of Present Illness HPI narrative: Ms. Singh is a 21-year-old female patient presenting to the clinic today with complaints of onset of hives that started around 1030 this morning. She denies any new exposure to any new lotions, soaps, laundry detergent, orany other environmental changes. Reports she did have this happen to her back in August and she was given a steroid shot and this helped. She denies any shortness of breath, throat swelling, or tongue swelling. She is able to speak in full sentences. Has had allergy testing done in the past and states the only thing that was documented was an allergy to avocados. She denies eating any avocados or using any avocado enhanced lotions or soaps. Has rash to her neck and abdomen. She has taken some Benadryl this morning without any changes. Related Data Home Medications Medication Instructions Recorded Confirmed metoclopramide HCl 5 mg PO DAILY 05/25/21 05/25/21 levonorgestrel [Mirena] 1 device INTRAUTERINE ONCE 11/17/21 11/17/21 Allergies Allergy/AdvReac Type Severity Reaction Status Date / Time latex Allergy Anaphylaxis Verified 11/17/21 12:23 Review of Systems Review of Systems: Pertinent positives per HPI. Patient denies any fever, chills, headache, visual changes, dizziness, cough, runny nose, sore throat, shortness of breath, chest pain, palpitations, nausea, vomiting, diarrhea, constipation, abdominal pain, or any urinary issues. [facility] Past Medical History Medical History (Updated 11/17/21 @ 12:47 by Osbaldo Treviño, REFRIGERATOR REPAIRMAN) Strep throat Surgical History Surgical History (Updated 05/25/21 @ 14:56 by Clara Crane, ENTERTAINMENT CENTRE MANAGER) No significant past surgical history Family History Family History (Updated 05/25/21 @ 14:56 by Clara Crane, ENTERTAINMENT CENTRE MANAGER) Other No significant family history Social History Social History (Updated 05/25/21 @ 14:57 by Clara Crane, ENTERTAINMENT CENTRE MANAGER) Smoking status: Never smoker Alcohol intake: current Alcohol use details: occasional Substance use: never Gender identity (if verbalized by the patient): Female Comments At the time of my signature, I reviewed and agree with the nursing past medical, surgical, social, and family history. There is no relevant family history pertinent to the patient complaint. Exam Narrative: General: Well-developed, well nourished, in no apparent distress Cardio: Regular rate and rhythm, s1 and s2 normal, no murmur appreciated. Resp: Clear to auscultation bilaterally, no rhonchi, rales, wheezing or rubs. Integumentary: [place], warm, and dry, intact without lesion, red raised blotchy rash to the bilateral anterior neck and bilateral anterior abdomen. None itching. Burning rash. Course Course Emergency Course: Portions of this record may have been created with voice recognition software. Level of Care: Express Care Visit Reevaluation(s) Reevaluation #1: Reevaluation after Decadron-redness and rash improving. Date: 11/17/21 Time: 13:08 Vital Signs Vital signs: Vital Signs Temperature 36.8 C 11/17/21 12:19 Pulse Rate 104 H 11/17/21 12:19 Respiratory Rate 16 11/17/21 12:19 Blood Pressure 121/77 11/17/21 12:19 Pulse Oximetry 100 11/17/21 12:19 Temperature 36.8 C 11/17/21 12:19 Pulse Rate 104 H 11/17/21 12:19 Respiratory Rate 16 11/17/21 12:19 Blood Pressure 121/77 11/17/21 12:19 Pulse Oximetry 100 11/17/21 12:19 Vital signs reviewed Medical Decision Making Differential Diagnosis Differential Diagnosis: Differential diagnosis includes allergic reaction, contact dermatitis, or viral exanthem Vital Signs Vital Signs: Vital Signs Temperature 36.8 C 11/17/21 12:19 Pulse Rate 104 H 11/17/21 12:19 Respiratory Rate 16 11/17/21 12:19 Blood Pressure
== END 2021-11-17 13:19 | disposition home or self-care (01) ==
PROVIDERS: Emergency Provider Nurse Practitioner Family; PCP Physician Assistant
DX: R21 Rash and other nonspecific skin eruption (principal); T78.40XA Allergy, unspecified, initial encounter; K21.9 Gastro-esophageal reflux disease without esophagitis
CPT/HCPCS: 96372; 99213; G0463; J1100

== ENCOUNTER → 2022-04-24 14:23 | Outpatient (CLI) | payer BC, SELFPAY ==
--- NOTE | ~2022-04-24 | US_ITS ---
EXAMINATION: US axilla RT HISTORY: Pain in the axillary region of the right breast TECHNIQUE: Targeted ultrasound is performed in the upper outer quadrant of the breast and the right a xilla. FINDINGS: No suspicious sonographic correlate is identified for the patient's reported right breast p ain. Normal-appearing right axillary lymph nodes are noted. IMPRESSION: No specific sonographic correlate is identified for the patient's reported pain. Further evaluation a t this time should be based on clinical assessment. Continued follow-up physical examination is recom mended. BI-RADS Category 1: Negative Reviewed, dictated and finalized at location A. IMPRESSION: No specific sonographic correlate is identified for the patient's reported pain . Further evaluation at this time should be based on clinical assessment. Divya nued follow-up physical examination is recommended. BI-RADS Category 1: Negative
== END ==
PROVIDERS: PCP Emergency Medicine; Visit Provider Emergency Medicine
DX: N64.4 Mastodynia (principal); M79.621 Pain in right upper arm
CPT/HCPCS: 76882

== ENCOUNTER 2022-10-18 12:03 | Outpatient (CLI) | payer BC, SELFPAY ==
[2022-10-18 12:55] LABS: Hemoglobin A1C 4.5 % (<5.7)
[2022-10-18 13:38] LABS: Free T4 Free Thyroxine 1.04 ng/mL (0.78-2.19)
[2022-10-21 13:16] LABS: DHEA-Sulfate 314 mcg/dL (18-391); Insulin Level Total 1.8 uIU/mL (<=19.6)
[2022-10-22 04:03] LABS: Prolactin 5.1 ng/mL (***)
[2022-10-23 11:30] LABS: Testosterone Total 27 ng/dL (2-45)
== END 2022-10-18 12:04 | disposition home or self-care (01) ==
PROVIDERS: PCP Physician Assistant; Visit Provider Nurse Practitioner
DX: N92.6 Irregular menstruation, unspecified (principal); N64.4 Mastodynia
CPT/HCPCS: 36415; 82627; 83036; 83498; 83525; 84146; 84402; 84403; 84439; 84443

== ENCOUNTER 2022-10-27 15:46 | Outpatient (CLI) | payer BC, SELFPAY ==
--- NOTE | ~2022-10-27 | US_ITS ---
EXAMINATION: US pelvic complete w TV DATE: 10/27/2022 16:57 INDICATION: Pelvic pain TECHNIQUE: Multiple transabdominal and endovaginal sonographic images of the pelvis were obtained. COMPARISON: None. FINDINGS: The uterus measures 10.3 x 4.1 x 2.3 cm. The endometrial complex measures 2-3 mm in thickness. On th e cine transverse images there appears to be and arcuate or septate uterus with separate uterine horn s. There is a T-shaped linear echogenic IUD which extends proximally within the endometrial canal of the uterine body with one limb extending to the right cornua. The second limb is less clearly visuali zed but appears to diverge also in the right uterine horn but extending deep and posterior into the m yometrium. The right ovary measures 3.2 x 1.7 x 1.9 cm. The left ovary measures 3.0 x 1.8 x 1.9 cm. T here is normal vascular flow in the ovaries. There are few small bilateral anechoic ovarian follicles . There is no free fluid in the pelvis. IMPRESSION: 1. Suggestion of a likely either an arcuate or more likely septate uterus with T-shaped IUD extending into the right uterine horn with 1 limb penetrating posterior medially into the myometrium. Could co nsider further evaluation with MRI as clinically indicated. Reviewed, dictated and finalized at location A. RVISOR TELEPHONE INFORMATION IMPRESSION: 1. Suggestion of a likely either an arcuate or more likely septate uterus with T-shaped IUD extending into the right uterine horn with 1 limb penetrating post erior medially into the myometrium. Could consider further evaluation with MRI as clinically indicated.
== END 2022-10-27 15:47 | disposition home or self-care (01) ==
PROVIDERS: PCP Physician Assistant; Visit Provider Nurse Practitioner
DX: R10.2 Pelvic and perineal pain (principal)
CPT/HCPCS: 76830; 76856

== ENCOUNTER 2022-11-06 00:39 | Day surgery (SDC) | payer BC, SELFPAY ==
[2022-10-31 10:29] VITALS: BMI 18.3
--- NOTE | 2022-10-31 10:34 | PC.NURSE ---
Report to the Outpatient Waiting Room, entrance under the green pavilion located off [facility], at time 1145 on date 11/06/22. Planned Procedure Time: 1345. Time changes happen often and if your time is changed the preop area will call you the afternoon before. - You and your visitor will be asked to self-screen and do not enter if you have any COVID symptoms. - Only one visitor is requested with a max of two and NO children visitors are allowed at this time. - The patient visitor may be requested to leave or wait in car when not with patient due to distancing restrictions. - A mask is optional within the hospital at this time. Patients may have clear liquids (water, carbonated beverages, clear teas, apple juice) until 3 hours prior to surgery with a maximum of 20 ounces. - No food from midnight until time of surgery Take the following medications with a SIP of water the morning of surgery: REGLAN DO NOT STOP ANY OF YOUR OTHER PRESCRIPTION MEDICATIONS PRIOR TO SURGERY EXCEPT THE FOLLOWING Medications to discontinue per physician: N/A Date to take last dose: N/A Please no make-up, nail maltese, hairspray, perfume, deodorant, or body powder the day of surgery. No jewelry (including any body piercings) or valuables the day of surgery, leave them at home. Please take a shower or bath the night before, or the morning of, surgery with an antibacterial soap. Wear comfortable, loose fitting clothing. - Jewelry must be removed prior to entering the operating room. Rings and piercings that are not removed may be cut off. - The hospital will not accept responsibility for valuables. - Please leave all valuables, including medications, at home the day of surgery. If you are going home after surgery, a licensed [employer] driver must drive you home. - NO public transportation without another adult if you receive anesthesia. - We recommend that an adult stay with you for 24 hours following discharge. - We also recommend that you do not drive, make important decision, drink alcoholic beverages, or take any drugs that were not prescribed by your health care provider for at least 24 hours after your discharge time. Follow any additional instructions given to you from your surgeon. If you or anyone in your household have experienced Covid symptoms in the past week, please notify your surgeon or the nurse liaison at the phone number below for possible testing. Telephone instructions given to PT Jocelin SOUTH and asked if any additional questions and then verbalized understanding. Patient advised to call surgeon office or pre surgery nurse liaison [phone] if any additional questions.
--- NOTE | 2022-11-06 08:48 | WPDHPUPDATE1 ---
History and Physical Update Update Date/Time: 11/06/22 08:48 History and Physical has been reviewed, including an updated exam of the patient. There are NO changes in the patient's condition. Risks, benefits, and alternatives have been discussed and questions answered. Patient agrees to proceed with procedure.
--- NOTE | 2022-11-06 08:49 | PM.HPGS ---
History of Present Illness History of Present Illness Consent: Risks, benefits, and alternatives have been discussed and questions answered. Patient agrees to proceed with procedure. Chief complaint: Embedded IUD Narrative: Lita Singh is a 22 year old female with a history of Mirena IUD placed September of 2020. 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 It was recommended to proceed with hysteroscopic removal. Risks of infection, bleeding, and perforation were reviewed. Patient voices understanding and agrees to proceed. Review of Systems Review of Systems: not repeated day of surgery; patient states no changes in status PMFSH Past Medical History Medical History (Updated 11/06/22 @ 08:52 by Bren Craft MD) Constipation Dyspepsia Gastroesophageal reflux disease Kidney stone Surgical History Surgical History (Updated 11/06/22 @ 08:51 by Bren Craft MD) History of orthopedic surgery Left knee 2016 Family History Family History Mother Kidney stones Other No active medical problems Social History Social History Smoking status: Never smoker Alcohol intake: current Drinks per week: 2 Substance use: never Substance use type: does not use Living arrangements: with friend(s) Additional living arrangements comments: BOYFRIEND Gender identity (if verbalized by the patient): Female Spiritual care concerns: No Meds Home Medications and Allergies Home Medications Medication Instructions Recorded Confirmed Type metoclopramide HCl 5 mg tablet See Rx Instructions .Route 10/13/21 10/31/22 Rx .COMPLEX #90 tabs Allergies Allergy/AdvReac Type Severity Reaction Status Date / Time latex Allergy Severe Hives Verified 10/31/22 10:29 adhesive Allergy Intermediate Rash Verified 10/31/22 10:29 Exam Const: General: healthy appearing and alert Orientation/consciousness: patient oriented x3 Resp: Effort & Inspection: normal respiratory effort : External Female Exam: normal external appearance Speculum Exam - Vagina: normal appearance of the vagina and normal vaginal discharge Speculum Exam - Cervix: normal appearance of the cervix Bimanual exam- vagina & uterus: uterine size normal and consistency normal Bimanual Exam- Adnexa, other: normal adnexae and No adnexal tenderness Neuro: General: patient oriented x3 Assessment and Plan Assessment and plan (1) Malpositioned IUD: Code(s): T83.32XA - Displacement of intrauterine contraceptive device, initial encounter Status: Acute Assessment and Plan: plan hysteroscopic removal
[2022-11-06 12:00] VITALS: BMI 19.1
[2022-11-06 12:05] VITALS: BP 125/78; PULSE 97; RESP 16; TEMP 37.3; O2SAT 100
[2022-11-06] MEDS: LACTATED RINGERS 1,000 ML 30 ML IV CONT (12:15)
[2022-11-06] MEDS: ACETAMINOPHEN 500 MG TABLET 1000 MG PO (12:23)
--- NOTE | 2022-11-06 12:45 | P.PNAN_ITS ---
Anes - Initial Pre Proc Eval Procedure: Operation Date: 11/06/22 13:45 Proposed Procedures p Hysteroscopy with Removal Intrauterine Device - Bren Craft MD Date/Time: 11/06/22 12:45 Surgeon: Bren Craft MD Pre Op Diagnosis: Embedded IUD Pre Op Diagnosis: Embedded IUD Patient Data Age: 22 Gender: F Height: 1.65 m Weight: 52.2 kg Last Vital Signs Temp 37.3 C 11/06/22 12:05 Pulse 97 11/06/22 12:05 Resp 16 11/06/22 12:05 BP 125/78 11/06/22 12:05 Pulse Ox 100 11/06/22 12:05 O2 Del Method Room Air 11/06/22 12:05 Allergies Allergy/AdvReac Type Severity Reaction Status Date / Time latex Allergy Severe Hives Verified 11/06/22 12:10 adhesive Allergy Intermediate Rash Verified 11/06/22 12:10 Home Medications Medication Instructions Recorded Confirmed Type metoclopramide HCl 5 mg tablet See Rx Instructions .Route 10/13/21 11/06/22 Rx .COMPLEX #90 tabs : patient denies HCG: negative Patient hx anesthesia problems: none Family hx anesthesia problems: none Results Review: All pre-operative results and documents have been reviewed as part of the pre- operative evaluation. [facility] Past Medical History Medical History Constipation Dyspepsia Gastroesophageal reflux disease Kidney stone Surgical History Surgical History History of orthopedic surgery Left knee 2016 Family History Family History Mother Kidney stones Other No active medical problems Social History Social History Smoking status: Never smoker Alcohol intake: current Drinks per week: 2 Substance use: never Substance use type: does not use Living arrangements: with friend(s) Additional living arrangements comments: BOYFRIEND Gender identity (if verbalized by the patient): Female Spiritual care concerns: No Anes - Eval Final PreProcedure Day of Procedure 11/06/22 12:45 Patient weight: normal Heart: regular rate and rhythm Lungs: normal air movement Airway: Mallampati scale class II Neurological: alert and oriented ASA classification: I Emergent: no Anesthetic plan: proceed Anesthesia type and monitoring: general (IVS) GIVS and standard monitoring Results Review: All pre-operative results and documents have been reviewed as part of the pre- operative evaluation. Informed Consent: The patient's anesthetic plan and its attendant risks and benefits were discussed with the patient/family/POA. Questions were solicited and answers provided to the satisfaction of the patient/family/POA.
[2022-11-06] MEDS: LIDOCAINE 1% BUFFERED WITH 8.4% SODIUM BICARB 1 ML SYRINGE 10 ML INFILTRATE (13:01)
[2022-11-06] MEDS: KETOROLAC 30 MG/ML VIAL (*BKC) IV PUSH (13:02)
[2022-11-06 13:08] VITALS: BP 104/69; PULSE 80; RESP 16; O2SAT 100
--- NOTE | 2022-11-06 13:10 | W.PM.PROC2 ---
Procedure Note - Detailed Date of Procedure 11/06/22 Pre-op Diagnosis Embedded IUD; Congenital anomaly of the uterus Post-op Diagnosis Same Procedure Performed hysteroscopy with removal IUD Surgeon Bren Craft MD Anesthesia MAC and Local Findings intrauterine device strings are short; the IUD is in the right horn of uterus and the upper T bars are bent with the posterior arm imbedded in the midline myometrium; large septum with 2 small horns and a lower combined cavity Description of Procedure The patient is taken to the operating room and placed under anesthesia in the dorsal lithotomy position. She was prepped and draped in usual sterile fashion. [place] speculum was placed in the vagina and the cervix grasped on the anterior lip with a tenaculum. The cervix is injected with 1% lidocaine in each quadrant. The uterus is sounded to 7cm. The hysteroscope was placed with the above-stated findings. The graspers were placed through the hysteroscope and the posterior arm was grasped with a graspers. Attempts to remove the IUD with the graspers were not successful as it was deeply embedded. The hysteroscope was removed and the strings are grasped and with some force the IUD was able to be removed intact. The IUD is discarded. The hysteroscope was replaced and the anatomy fully visualized and outlined as above. The hysteroscope and all other instruments were removed. The sponge, needle, and instrument counts are correct per the OR staff. The patient is awakened from anesthesia and taken to recovery in stable condition. Estimated Blood Loss 5 Drains No Packing No Pathology None sent Complications No immediate complications Condition Stable Disposition PACU
[2022-11-06 13:30] VITALS: BP 113/77; PULSE 80; RESP 16
[2022-11-06 13:55] VITALS: BP 103/65; PULSE 74; RESP 13
== END 2022-11-06 14:04 | disposition home or self-care (01) ==
PROVIDERS: PCP Physician Assistant; Visit Provider Obstetrics & Gynecology Gynecology
PROC: 0U5B8ZZ Destruction of Endometrium, Via Natural or Artificial Opening Endoscopic (ICD-10-PCS; CPT 58563; principal; 2022-11-06 13:45)
DX: T83.32XA Displacement of intrauterine contraceptive device, initial encounter (principal); K21.9 Gastro-esophageal reflux disease without esophagitis
CPT/HCPCS: 58562; A9270; J1100; J1885; J2250; J2405; J2704; J3010; J7120

== ENCOUNTER 2022-11-14 17:05 | Emergency (ER) | payer BC, SELFPAY ==
[2022-11-14 17:16] VITALS: BP 109/75; PULSE 88; RESP 16; TEMP 36.9; O2SAT 100
--- NOTE | 2022-11-14 17:39 | ED.GENADULT ---
HPI - General Adult General Chief complaint: Dental/Oral Stated complaint: blisters on upper lip Time Seen by Provider: 11/14/22 17:40 Source: patient Mode of arrival: ambulatory Limitations: no limitations History of Present Illness HPI narrative: 22-year-old female presented for complaint of cold sore to the right upper lip, onset 3 days. 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 She has been taking Tylenol, ibuprofen, Benadryl, applying Neosporin and 'cold sore KUR' and campho phenique. Endorses lip swelling and pain to the site. States this morning she had swelling up to the right eye. Related Data Home Medications Medication Instructions Recorded Confirmed norethindrone 1 mg-ethinyl 1 tablet PO DAILY 11/14/22 11/14/22 estradiol 20 mcg (24)-iron 75 mg (4) tablet (Blisovi 24 Fe) Allergies Allergy/AdvReac Type Severity Reaction Status Date / Time latex Allergy Severe Hives Verified 11/14/22 17:11 adhesive Allergy Intermediate Rash Verified 11/14/22 17:11 Review of Systems Review of Systems: CONSTITUTIONAL: Denies body aches, fever, chills, or sweats. EYES: Denies visual changes, redness, or discharge. ENT: Denies rhinorrhea, congestion CARDIOVASCULAR: Denies chest pain, palpitations, or edema. RESPIRATORY: Denies cough or dyspnea. SKIN: per HPI MUSCULOSKELETAL: Denies back pain, joint pain, or myalgia. NEUROLOGIC: Denies headache, numbness, tingling, or weakness. [facility] Past Medical History Medical History Constipation Dyspepsia Gastroesophageal reflux disease Kidney stone Surgical History Surgical History History of orthopedic surgery Left knee 2016 Family History Family History Mother Kidney stones Other No active medical problems Social History Social History Smoking status: Never smoker Alcohol intake: current Drinks per week: 2 Substance use: never Substance use type: does not use Living arrangements: with friend(s) Additional living arrangements comments: BOYFRIEND Gender identity (if verbalized by the patient): Female Spiritual care concerns: No Comments At time of signature, I have reviewed and agree with nursing past medical, surgical, social and family history unless otherwise noted. Please see nursing chart for further information. There is no relevant family history pertinent to the presenting complaint Exam Narrative: GENERAL: Well-appearing HEAD: Normocephalic, atraumatic. EYES: conjunctivae clear, and EOMI. ENT: Mucous membranes moist. Right upper lip with erythematous vesicles c/w herpes labialis; no active drainage; mild upper lip swelling; Oropharynx without edema, erythema or lesions. NECK: Supple. No lymphadenopathy CHEST: Clear to auscultation. HEART: Regular rate and rhythm. SKIN: Warm, dry. NEURO: Alert and oriented x3. Course Course Emergency Course: Patient is aware of diagnosis, understands and agrees to treatment plan. Anticipatory guidance given. Patient agrees to follow-up as directed and is aware of reasons to seek care at the emergency department. Portions of this record may have been created with voice recognition software Level of Care: Express Care Visit Vital Signs Vital signs: Vital Signs Temperature 98.4 F 11/14/22 17:16 Pulse Rate 88 11/14/22 17:16 Respiratory Rate 16 11/14/22 17:16 Blood Pressure 109/75 11/14/22 17:16 Pulse Oximetry 100 11/14/22 17:16 Temperature 98.4 F 11/14/22 17:16 Pulse Rate 88 11/14/22 17:16 Respiratory Rate 16 11/14/22 17:16 Blood Pressure 109/75 11/14/22 17:16 Pulse Oximetry 100 11/14/22 17:16 Reviewed Medical Decision Making MDM Narrative Medical decision making narrative: Advised supportive
== END 2022-11-14 17:59 | disposition home or self-care (01) ==
PROVIDERS: Emergency Provider Nurse Practitioner Family; PCP Physician Assistant
DX: B00.1 Herpesviral vesicular dermatitis (principal)
CPT/HCPCS: 99213; G0463

== ENCOUNTER 2022-11-17 13:16 | Outpatient (CLI) | payer BC, SELFPAY ==
--- NOTE | ~2022-11-17 | CT_ITS ---
EXAMINATION: CT abdomen pelvis wo/w con DATE: 11/17/2022 14:06 INDICATION: Uterine anomaly TECHNIQUE: Computed tomography (CT) of the abdomen and pelvis was performed without intravenous contr ast. CT of the abdomen and pelvis was then performed with a total of 130 mL Omnipaque 350 intravenous contrast using a double-bolus technique for simultaneous opacification of the renal parenchyma and r enal collecting system. The dose-length product (DLP) was 512.57 mGy-cm. Automated exposure control a nd iterative reconstruction technique were employed. COMPARISON: Ultrasound, 10/27/2022 FINDINGS: The lung bases are clear. The heart size is normal. The liver, spleen, pancreas, gallbladde r, and adrenal glands are normal. The kidneys are unremarkable. No suspicious renal or urothelial les ion identified. No pathologically enlarged abdominal or pelvic lymph nodes are identified. No free in traperitoneal gas or evidence of bowel obstruction. Two separate endometrial cavities are identified by intervening myometrium. The external contour of the uterine fundus appears to be convex. The visualized osseous structures are unremarkable. IMPRESSION: 1. CT findings consistent with septate uterus. Reviewed, dictated and finalized at location F. KITTER
== END 2022-11-17 13:17 | disposition home or self-care (01) ==
PROVIDERS: PCP Physician Assistant; Visit Provider Obstetrics & Gynecology Gynecology
DX: Q51.818 Other congenital malformations of uterus (principal)
CPT/HCPCS: 74178; Q9967

== ENCOUNTER 2022-11-25 08:04 | Emergency (ER) | payer BC, SELFPAY ==
[2022-11-25 08:14] VITALS: BP 116/85; PULSE 82; RESP 16; TEMP 35.9; O2SAT 100
--- NOTE | 2022-11-25 08:14 | ED.EAR ---
HPI - Ear Problem General Chief complaint: Ear Stated complaint: right ear ache Time Seen by Provider: 11/25/22 08:14 Source: patient and RN notes reviewed History of Present Illness HPI Narrative: Patient is a 22-year-old female presents to urgent care with complaints of right ear pain. Patient states that the right ear has bothered her for approximately 3 days and she woke up with left ear discomfort today. Denies any other upper respiratory complaints. Denies any fever, nausea or vomiting. No other acute complaints. No acute distress noted. Patient aware of the plan of care. Some parts of this dictation were generated by voice recognition software and may contain typographical and/or grammatical inaccuracies. Related Data Home Medications Medication Instructions Recorded Confirmed norethindrone 1 mg-ethinyl tablet 11/25/22 estradiol 20 mcg (24)-iron 75 mg (4) tablet (Blisovi 24 Fe) Allergies Allergy/AdvReac Type Severity Reaction Status Date / Time adhesive Allergy Intermediate Rash Verified 11/25/22 08:14 latex Allergy Anaphylaxis Verified 11/25/22 08:14 Review of Systems Review of Systems: CONSTITUTIONAL: Denies fever, chills, or sweats. EYES: Denies visual changes, redness, or discharge. ENT: Denies rhinorrhea, congestion, sore throat. Reports bilateral otalgia, worse on the right CARDIOVASCULAR: Denies chest pain, palpitations, or edema. RESPIRATORY: Denies cough or dyspnea. GASTROINTESTINAL: Denies abdominal pain, nausea, vomiting, or diarrhea. GENITOURINARY: Denies dysuria or hematuria. SKIN: Denies rash or itching. MUSCULOSKELETAL: Denies back pain, joint pain, or myalgia. NEUROLOGIC: Denies headache, numbness, or weakness. All other systems reviewed are negative, except as documented in HPI. [facility] Past Medical History Medical History (Updated 11/25/22 @ 08:28 by MINNA Mendes) Constipation Dyspepsia Gastroesophageal reflux disease Kidney stone Strep throat Surgical History Surgical History (Updated 11/24/22 @ 12:17 by Rosie Jackson) History of orthopedic surgery Left knee 2016 No significant past surgical history Family History Family History (System 11/24/22 @ 12:17 by Rosie Jackson) Mother Kidney stones Other No active medical problems No significant family history Social History Social History (System 11/24/22 @ 12:17 by Rosie Jackson) Smoking status: Never smoker Alcohol intake: current Drinks per week: 2 Alcohol use details: occasional Substance use: never Substance use type: does not use Living arrangements: with friend(s) Additional living arrangements comments: BOYFRIEND Occupation/Education: student Gender identity (if verbalized by the patient): Female Spiritual care concerns: No Comments At the time of my signature, I reviewed and agree with the nursing past medical, surgical, social, and family history. There is no relevant family history pertinent to the patient complaint. Exam Narrative: GENERAL: This is a well-nourished, well-developed patient, in no apparent distress. HEAD: normocephalic, atraumatic. EYES: PERRL. Sclera clear/white. Vision is grossly intact. EARS: External ears normal, left auditory canal clear and without drainage, small pinpoint abrasion with erythema to approximately 5:00 a.m. of the inner right canal. Bilateral TMs normal without perforation. Hearing grossly intact. NOSE: External nose normal with no obvious nasal discharge, nares without redness, no rhinorrhea. THROAT: Mucous membranes moist, posterior pharynx clear. NECK: Neck supple SKIN: warm, intact with no suspicious lesions or rash, good texture and turgor. NEURO: awake, alert, and oriented to person, place and time. There were no obvious focal neurologic abnormalities. EXTREMITIES: No clubbing, cyanosis, or edema. Course Course Level of Care: Express Care Visit Vital Signs Vital signs: Vital Signs Temperature 96.7 F L
[2022-11-25 08:15] VITALS: BP 116/85; PULSE 82; RESP 16; TEMP 35.9; O2SAT 100
== END 2022-11-25 08:34 | disposition home or self-care (01) ==
PROVIDERS: Emergency Provider Nurse Practitioner Family; PCP Physician Assistant
DX: H60.91 Unspecified otitis externa, right ear (principal); K21.9 Gastro-esophageal reflux disease without esophagitis
CPT/HCPCS: 99211; G0463

== ENCOUNTER 2022-12-18 11:24 | Outpatient (CLI) | payer BC, SELFPAY ==
--- NOTE | ~2022-12-18 | XR_ITS ---
EXAMINATION:XR_[id number]_CR DATE: 12/18/2022 11:42 INDICATION: Neck pain TECHNIQUE: AP, lateral, and odontoid views of the cervical spine are provided. COMPARISON: None FINDINGS: Alignment is normal. The odontoid process is intact. No fracture is identified. Vertebral b buddy heights and disk spaces are normal. Prevertebral soft tissues are normal. IMPRESSION: 1. No acute osseous abnormality. Reviewed, dictated and finalized at location B.
== END 2022-12-18 11:25 | disposition home or self-care (01) ==
PROVIDERS: PCP Physician Assistant; Visit Provider Physician Assistant
DX: S13.4XXA Sprain of ligaments of cervical spine, initial encounter (principal); X58.XXXA Exposure to other specified factors, initial encounter
CPT/HCPCS: 72040

== ENCOUNTER 2023-07-11 08:24 | Emergency (ER) | payer BC, SELFPAY ==
--- NOTE | 2023-07-11 08:29 | ED.URI ---
HPI - URI/Sore Throat General Chief Complaint: Upper Respiratory Infection Stated Complaint: Face Rash and Throat Irritation Source: patient and RN notes reviewed History of Present Illness HPI Narrative: 22 yo F presents to urgent care with complaints of a sore throat. Pt states she felt a little something last night but woke up and couldn't swallow b/c it hurt so bad. Pt states she has had some right ear pain too. Pt states she woke up with a red rash all over her neck and her face. Pt states she gets these rashes often and they resolve after taking a Benadryl which she did this morning. Pt presents with minimal erythema to her bilateral orbits. Pt denies any oral swelling, SOB, chest pain, N/V/D, fevers, or chills. Pt states she has been to an crosscutter and still doesn't know why she is breaking out in these rashes. Related Data Home Medications Medication Instructions Recorded Confirmed norethindrone 1 mg-ethinyl 1 tablet PO DAILY 11/25/22 07/11/23 estradiol 20 mcg (24)-iron 75 mg (4) tablet (Blisovi 24 Fe) metoclopramide HCl 5 mg tablet mg 07/11/23 07/11/23 Allergies Allergy/AdvReac Type Severity Reaction Status Date / Time adhesive Allergy Intermediate Rash Verified 07/11/23 08:47 latex Allergy Anaphylaxis Verified 07/11/23 08:47 Review of Systems Review of Systems: Pertinent positives and pertinent negatives per HPI. [facility] Past Medical History Medical History (Updated 07/11/23 @ 08:53 by Diana Muniz, SYBIL) Constipation Dyspepsia Gastroesophageal reflux disease Kidney stone Strep throat Surgical History Surgical History (Updated 11/24/22 @ 12:17 by Rosie Jackson) History of orthopedic surgery Left knee 2016 No significant past surgical history Family History Family History (System 11/24/22 @ 12:17 by Rosie Jackson) Mother Kidney stones Other No active medical problems No significant family history Social History Social History (System 11/24/22 @ 12:17 by Rosie Jackson) Smoking status: Never smoker Alcohol intake: current Drinks per week: 2 Alcohol use details: occasional Substance use: never Substance use type: does not use Living arrangements: with friend(s) Additional living arrangements comments: BOYFRIEND Occupation/Education: student Gender identity (if verbalized by the patient): Female Spiritual care concerns: No Comments At the time of my signature, I reviewed and agree with the nursing past medical, surgical, social, and family history. There is no relevant family history pertinent to the patient complaint. Exam Narrative: GENERAL: This is a well-nourished, well-developed patient, in no apparent distress. HEAD: normocephalic, atraumatic. EYES: Sclera clear/white. Vision is grossly intact. EARS: External ears normal, auditory canals clear and without drainage, TMs normal without perforation. Hearing grossly intact. NOSE: External nose normal with no obvious nasal discharge, nares without redness, no rhinorrhea. THROAT: Mucous membranes moist, posterior pharynx erythremic, with white exudate noted. Tonsils 1+ bilaterally. NECK: Neck supple, non-tender without lymphadenopathy, masses or thyromegaly. CARDIOVASCULAR: Regular rate and rhythm without murmurs, gallops, or rubs. RESPIRATORY: Clear to auscultation. Breath sounds equal bilaterally. No wheezes, rales, or rhonchi. GASTROINTESTINAL: Abdomen soft, non-tender, nondistended. Bowel sounds are active. No hepato-splenomegaly, or palpable masses. No guarding. SKIN: minimal erythema to bilateral outer canthus areas. Pt brought in picture of her typical rash that occurs randomly and it appears to be generalized, bright red, erythema to neck and face. NEURO: awake, alert, and oriented to person, place and time. There were no obvious focal neurologic abnormalities. Course Course Level of Care: Express Care Visit Vital Signs Vital signs: Vital Signs Temperature 98
[2023-07-11 08:35] VITALS: BP 116/73; PULSE 96; RESP 16; TEMP 36.6; O2SAT 100
== END 2023-07-11 09:05 | disposition home or self-care (01) ==
PROVIDERS: Emergency Provider Nurse Practitioner Family; PCP Physician Assistant
DX: J02.9 Acute pharyngitis, unspecified (principal); K21.9 Gastro-esophageal reflux disease without esophagitis
CPT/HCPCS: 87081; 87880; 99213; G0463

== ENCOUNTER 2023-09-25 12:49 | Outpatient (CLI) | payer BC, SELFPAY ==
--- NOTE | ~2023-09-25 | US_ITS ---
Pelvic ultrasound. Clinical History: Pelvic pain Technique: Realtime transabdominal and transvaginal scanning of the pelvis was performed. Color flow Doppler and Doppler spectral analysis were performed. Findings: The uterus is anteverted, and measures 6.9 x 3.0 x 4.4 cm. The endometrial stripe has a th ickness of 5 mm. No focal mass is identified. The right ovary measures 3.3 x 2.5 x 3.5 cm. No significant right ovarian or adnexal mass is seen. The left ovary measures 3.2 x 2.0 x 3.6 cm. No significant left ovarian or adnexal mass is seen. Vascular flow present in both ovaries on Doppler spectral analysis. There is probable tiny amount of free fluid in the cul de sac. Impression: No significant abnormality seen. Reviewed, dictated and finalized at [facility]. [employer] Impression: No significant abnormality seen.
== END 2023-09-25 12:50 ==
LOC: MICIMG 12:50
PROVIDERS: PCP Obstetrics & Gynecology Gynecology; Visit Provider Obstetrics & Gynecology Gynecology
DX: R10.2 Pelvic and perineal pain (principal); R93.89 Abnormal findings on diagnostic imaging of other specified body structures
CPT/HCPCS: 76856

== ENCOUNTER 2023-10-04 10:49 | Outpatient (CLI) | payer BC, SELFPAY ==
--- NOTE | ~2023-10-04 | US_ITS ---
EXAMINATION: US transvaginal DATE: 10/04/2023 11:29 INDICATION: Abnormal pelvic ultrasound TECHNIQUE: Multiple endovaginal sonographic images of the pelvis were obtained. COMPARISON: 09/25/2023; CT, 11/17/2022 FINDINGS: The uterus measures 7.2 x 2.9 x 4.3 cm. Two endometrial cavities are again seen, better chun reciated on the comparison CT and consistent with septate uterus. The endometrial complex measures 8 mm. The right ovary measures 5.3 x 3.5 x 4.7 cm and contains a 3.3 cm cyst. The left ovary measures 3 .0 x 1.7 x 2.1 cm. There is normal vascular flow in the ovaries. There is a small amount of likely ph ysiologic free fluid in the pelvis. IMPRESSION: 1. Unremarkable pelvic ultrasound. Septate uterus. Reviewed, dictated and finalized at location F. ARE CASE WORKER
== END 2023-10-04 10:50 ==
LOC: MICIMG 10:50
PROVIDERS: PCP Obstetrics & Gynecology Gynecology; Visit Provider Obstetrics & Gynecology Gynecology
DX: R93.5 Abnormal findings on diagnostic imaging of other abdominal regions, including retroperitoneum (principal); Q51.28 Other and unspecified doubling of uterus
CPT/HCPCS: 76830

== ENCOUNTER 2023-10-05 13:07 | Emergency (ER) | payer BC, SELFPAY ==
[2023-10-05 13:09] VITALS: BP 122/87; PULSE 100; RESP 20; TEMP 36.8; O2SAT 100
--- NOTE | 2023-10-05 16:03 | PC.NURSE ---
[address] was just going to order imaging for her and walked out of department.
== END 2023-10-05 16:37 | disposition left against medical advice (07) ==
PROVIDERS: PCP Obstetrics & Gynecology Gynecology
DX: R10.9 Unspecified abdominal pain (principal)
CPT/HCPCS: 99199

== ENCOUNTER 2023-12-06 12:44 | Outpatient (CLI) | payer BC, SELFPAY ==
--- NOTE | ~2023-12-06 | US_ITS ---
EXAMINATION: US pelvic complete DATE: 12/06/2023 13:04 INDICATION: Ovarian cyst follow-up TECHNIQUE: Multiple transabdominal sonographic images of the pelvis were obtained. COMPARISON: 10/04/2023 FINDINGS: The uterus measures 8.3 x 3.0 x 4.7 cm. Again noted are two endometrial cavities, consisten t with septate uterus.. The endometrial complexes measure 6 mm and 8 mm on the right and left, respec tively. The right ovary measures 3.8 x 2.9 x 3.2 cm. The left ovary measures 4.0 x 2.0 x 2.8 cm. Ther e is normal vascular flow in the ovaries. There is trace free fluid in the pelvis, likely physiologic . IMPRESSION: 1. No ovarian cyst identified. Septate uterus. Reviewed, dictated and finalized at location F.
== END 2023-12-06 12:45 ==
LOC: MICIMG 12:45
PROVIDERS: PCP Obstetrics & Gynecology Gynecology; Visit Provider Obstetrics & Gynecology Gynecology
DX: Q51.28 Other and unspecified doubling of uterus (principal); N83.209 Unspecified ovarian cyst, unspecified side
CPT/HCPCS: 76856

== ENCOUNTER 2024-03-03 15:39 | Emergency (ER) | payer BC, SELFPAY ==
[2024-03-03 15:49] VITALS: BP 114/74; PULSE 84; RESP 18; TEMP 36.7; O2SAT 100
[2024-03-03 16:14] VITALS: BP 114/74; PULSE 84; RESP 18; TEMP 36.7; O2SAT 100
--- NOTE | 2024-03-03 17:05 | ED.GENADULT ---
HPI - General Adult General Chief complaint: Urogenital-Female Stated complaint: Poss uti Time Seen by Provider: 03/03/24 16:48 Source: patient, RN notes reviewed and old records reviewed Mode of arrival: ambulatory Limitations: no limitations History of Present Illness HPI narrative: 23 year old female to Express Care with complaint urinary pressure, urinary burning, urinary urgency, urinary dribbling, chills since 5:00 a.m. this morning. Patient denies fever, nausea, vomiting, abdominal pain, flank pain, back pain. Patient able to tolerate fluids by mouth. Patient no acute distress. Related Data Home Medications Medication Instructions Recorded Confirmed norethindrone 1 mg-ethinyl 1 tablet PO DAILY 11/25/22 03/03/24 estradiol 20 mcg (24)-iron 75 mg (4) tablet (Blisovi 24 Fe) Allergies Allergy/AdvReac Type Severity Reaction Status Date / Time adhesive Allergy Intermediate Rash Verified 03/03/24 16:05 latex Allergy Anaphylaxis Verified 03/03/24 16:05 Review of Systems Review of Systems: All systems reviewed & are unremarkable except as noted in HPI and below Constitutional: Constitutional: Reports as per HPI and Reports chills Eyes: Eyes: Reports no additional eye complaints ENT: Reports system reviewed and no additional complaints, except as documented Cardiovascular: Cardiovascular: Reports no additional cardiovascular complaints, Denies chest pain and Denies dyspnea Respiratory: Respiratory: Reports no additional respiratory complaints, Denies cough and Denies dyspnea Genitourinary: Genitourinary: Reports as per HPI, Reports urinary frequency, Reports post void dribbling, Reports nocturia, Denies flank pain, Reports urinary hesitancy and Reports urinary urgency Musculoskeletal: Musculoskeletal: Reports no additional musculoskeletal complaints Neurologic: Reports system reviewed and no additional complaints, except as documented Psychiatric: Psychiatric: Reports no additional psychiatric complaints [facility] Past Medical History Medical History Constipation Dyspepsia Gastroesophageal reflux disease Kidney stone Strep throat Surgical History Surgical History History of orthopedic surgery Left knee 2016 No significant past surgical history Family History Family History Mother Kidney stones Other No active medical problems No significant family history Social History Social History Smoking status: Never smoker Alcohol intake: current Drinks per week: 2 Alcohol use details: occasional Substance use: never Substance use type: does not use Living arrangements: with friend(s) Additional living arrangements comments: BOYFRIEND Occupation/Education: student Gender identity (if verbalized by the patient): Female Spiritual care concerns: No Comments At the time of my signature, I reviewed and agree with the nursing past medical, surgical, social, and family history. There is no relevant family history pertinent to the patient complaint. Exam Const: General: cooperative, no acute distress, alert, tired appearing, uncomfortable and well nourished Nutritional Appearance: well nourished Orientation/consciousness: patient oriented x3 Limitations: no limitations HENMT: Head: normal to inspection Ears: external ears normal Face/Nose/Sinus: Normal external nose present, Normal nares present, normal facial exam, No erythema and No edema Face and sinus: normal facial exam, no erythema and no edema Mouth: Yes Normal oral and palatal mucosa present Eyes: General: appearance normal, both eyes and all related structures Neck: Neck: normal visual inspection, full ROM and no meningeal signs Lymphatic: no lymphadenopathy noted and no
== END 2024-03-03 17:15 | disposition home or self-care (01) ==
PROVIDERS: Emergency Provider Nurse Practitioner Family; PCP Physician Assistant
DX: N39.0 Urinary tract infection, site not specified (principal); K21.9 Gastro-esophageal reflux disease without esophagitis
CPT/HCPCS: 81003; 87086; 87088; 99213; G0463

== ENCOUNTER 2024-03-25 09:35 | Outpatient (CLI) | payer BC, SELFPAY ==
--- NOTE | ~2024-03-25 | US_ITS ---
Limited Abdominal Sonogram: Real-time sonographic imaging of the right upper quadrant was performed. Clinical History: Abdominal pain Findings: The liver appears normal with no evidence of mass lesion or bile duct dilatation. Main por andrew vein demonstrates normal direction of flow. The gallbladder is well distended, and appears normal with no evidence of gallstone or wall thickening. The common bile duct measures 3 mm. The visualize d pancreas, aorta, and IVC are unremarkable. Impression: No significant abnormality seen. Reviewed, dictated and finalized at location . Impression: No significant abnormality seen.
== END 2024-03-25 09:36 ==
LOC: GOSHIMG 09:36
PROVIDERS: PCP Physician Assistant; Visit Provider Physician Assistant
DX: R10.9 Unspecified abdominal pain (principal)
CPT/HCPCS: 76705